=== PATIENT | male | born 1980 | race Caucasian/White ===

== ENCOUNTER 2018-09-04 17:51 | Outpatient (CLI) | payer OTHER ==
--- NOTE | 2018-09-05 09:18 | XRAY Report ---
Reason: CERVICAL RADICULOPATHY Procedure Date: 09/04/2018 Accession Number: [id number] / [id number] Procedure: XR - Cervical Spine 2 View CPT Code: FULL RESULT: EXAM: CERVICAL SPINE RADIOGRAPHY EXAM DATE: 09/04/2018 06:39 PM. CLINICAL HISTORY: CERVICAL RADICULOPATHY. COMPARISONS: None. TECHNIQUE: 3 views. FINDINGS: Alignment: Normal. No spondylolisthesis or scoliosis. Bones: The cervical vertebral bodies and posterior elements are well visualized from the skull base through C7-T1. No fractures or bone lesions. Disks: There is mild mid cervical spine disk space narrowing. Facets: No evidence of significant facet arthrosis. Soft Tissues: No clear evidence of prevertebral soft tissue abnormality. No evidence of apical pneumothorax. IMPRESSION: 1. No evidence of fracture or dislocation. 2. There is mild mid cervical spine disk space narrowing. [facility]
== END 2018-09-04 17:52 | disposition home or self-care (01) ==
LOC: DI 17:51
PROVIDERS: ATTEND Family Medicine
DX: M54.12 Radiculopathy, cervical region (principal)
CPT/HCPCS: 72040

== ENCOUNTER 2019-12-15 11:08 | Outpatient (CLI) | payer OTHER | END 2019-12-15 11:09 | disposition home or self-care (01) | LOC: COV 11:08 | PROVIDERS: ATTEND Family Medicine | DX: R05 Cough (principal); R50.9 Fever, unspecified | CPT/HCPCS: 81599 ==

== ENCOUNTER 2024-02-27 08:00 | Outpatient (CLI) | payer OTHER | END 2024-02-27 23:59 | disposition home or self-care (01) | LOC: LAB.N 08:00 | PROVIDERS: ATTEND Physician Assistant Medical | DX: R30.0 Dysuria (principal) | CPT/HCPCS: 87086; 87491; 87591; 87661 ==

== ENCOUNTER 2024-03-15 14:45 | Outpatient (CLI) | payer OTHER ==
[2024-03-15 21:12] LABS: CHLAMYDIA TRACHOMATIS DNA NEGATIVE (NEGATIVE); NEISSERIA GONORRHOEAE DNA NEGATIVE (NEGATIVE); TRICHOMONAS VAGINALIS DNA NEGATIVE (NEGATIVE)
== END 2024-03-15 15:00 | disposition home or self-care (01) ==
LOC: LAB.N 14:45
PROVIDERS: ATTEND Physician Assistant Medical
DX: R10.9 Unspecified abdominal pain (principal)
CPT/HCPCS: 87491; 87591; 87661